=== PATIENT | male | born 1990 | race Caucasian/White ===

== ENCOUNTER 2019-07-31 14:21 | Emergency (ER) | payer OTHER ==
[~2019-07-31] VITALS: Ht 177.8 cm; Wt 77.1 kg
[2019-07-31 16:04] LABS: BASO # 0.1 10*3/uL (0.0-0.1); BASO % 0.4 % (0.0-1.0); EOS # 0.2 10*3/uL (0.0-0.4); EOS % 1.2 % (1.0-4.0); HEMATOCRIT 25.3 % (42.0-52.0); LYMPH # 1.9 10*3/uL (1.3-4.4); LYMPH % 15.1 % (27.0-41.0); MEAN CELL VOLUME 88.8 fl (80.0-94.0); MEAN CORPUSCULAR HGB 28.1 pg (27.0-31.0); MEAN CORPUSCULAR HGB CONC 31.6 g/dl (33.0-37.0); MEAN PLATELET VOLUME 8.8 fl (9.6-12.3); MONO # 0.6 10*3/uL (0.1-1.0); MONO % 4.6 % (3.0-9.0); NEUT # 9.6 10*3/uL (2.3-7.9); NEUT % 78.3 % (47.0-73.0); PLATELET COUNT AUTOMATED 713 10*3/uL (130-400); RED BLOOD COUNT 2.85 10*6/uL (4.50-5.90); RED CELL DISTRI WIDTH 14.2 % (0-14.5); WHITE BLOOD COUNT 12.3 10*3/uL (4.8-10.8)
[2019-07-31 16:22] LABS: ALBUMIN 2.3 gm/dl (3.1-4.5); ALKALINE PHOSPHATASE 64 U/L (45-117); BUN 11 mg/dl (7-24); CHLORIDE 109 mmol/L (98-107); CREATININE 0.93 mg/dL (0.70-1.30); POTASSIUM 3.7 mmol/L (3.5-5.1); SGOT/AST 8 IU/L (3-35); SGPT/ALT 20 U/L (12-78); SODIUM 141 mmol/L (136-145); TOTAL PROTEIN 6.3 gm/dL (6.4-8.2)
[2019-07-31 16:23] LABS: TROPONIN I < 0.015 ng/ml (<0.045)
[2019-07-31] MEDS ORDERED: VIBRAMYCIN100 MG PO ×2 (19:23→19:39)
[2019-07-31] MEDS ORDERED: AUGMENTIN 875875 MG PO ×2 (19:23→19:39)
== END 2019-07-31 19:53 | disposition left against medical advice (07) ==
LOC: ED 14:21
PROVIDERS: Nurse Practitioner Family
DX: L08.9 Local infection of the skin and subcutaneous tissue, unspecified (principal)